=== PATIENT | female | born 1970 | race African-American/Black ===

== ENCOUNTER 2017-12-14 04:25 | Emergency (ER) | payer MEDICARE, MEDICAID ==
[~2017-12-14] VITALS: Ht 165.1 cm; Wt 81.6 kg
[2017-12-14 04:31] VITALS: BP 134/74
[2017-12-14] MEDS: HYDROmorphone 1mg/ml Carpuject IM ONE (04:38)
--- NOTE | 2017-12-14 04:38 | Emergency Room Report ---
History of Present Illness General Chief Complaint: Upper Extremity Injury Source: Patient, Medical Record Present Illness HPI Is a 47 show female with a history of epilepsy, chronic pain and is wheelchair- bound. She resides in a senior care. She presents with chief complaint of shoulder pain and left-sided pain. About 3 days ago she was in an activity at the senior care. They stood her up and she fell to the left side. She complaining of severe left shoulder pain. Also with rib pain and headache. No loss of consciousness. No nausea vomiting. No other symptoms. Pain is 10 out of 10. Allergies: Coded Allergies: CEPHALEXIN (Unverified Allergy, Unknown, 12/14/17) CRANBERRY (Unverified Allergy, Unknown, 12/14/17) PERMETHRIN (Unverified Allergy, Unknown, 12/14/17) TRAMADOL (Unverified Allergy, Unknown, 12/14/17) WARFARIN (Unverified Allergy, Unknown, 12/14/17) Uncoded Allergies: PLASTIC TAPE (Allergy, Unknown, 12/14/17) Patient History Past Medical History: see triage record, old chart reviewed Past Surgical History: other Pertinent Family History: none Social History: Denies: smoking Last Menstrual Period: UNK Now: No Immunizations: other Reviewed Nursing Documentation: PMH: Agreed, PSxH: Agreed Review of Systems Eye: Denies: eye pain, blurred vision ENT: Denies: ear pain, nose congestion, throat swelling Respiratory: Denies: cough, shortness of breath Cardiovascular: Denies: chest pain, palpitations Gastrointestinal: Denies: abdominal pain, diarrhea, nausea, vomiting Musculoskeletal: Reports: joint pain, Denies: back pain Skin: Denies: rash Neurological: Denies: headache, numbness Endocrine: Denies: increased thirst, increased urine Hematologic/Lymphatic: Denies: easy bruising All Other Systems: negative except mentioned in HPI Physical Exam Vital Signs Date Time Temp Pulse Resp B/P (MAP) Pulse Ox O2 Delivery O2 Flow Rate FiO2 12/14/17 04:21 97.2 66 20 134/74 100 Room Air vitals normal Sp02 EP Interpretation: reviewed, normal General Appearance: well appearing, no apparent distress, alert Head: normocephalic, atraumatic Eyes: bilateral eye PERRL, bilateral eye EOMI ENT: hearing grossly normal, normal pharynx Neck: full range of motion, supple, no meningismus Respiratory: lungs clear, normal breath sounds, other - Chest wall tendeness along the left lateral rib underneath her breast Cardiovascular #1: regular rate, rhythm, no murmur Gastrointestinal: normal bowel sounds, non tender, no mass, no organomegaly, no bruit, non-distended Musculoskeletal: back normal, normal range of motion, other - Left shoulder with mild edema and ecchymosis. Pain with movement. Psychiatric: mood/affect normal Skin: warm/dry Procedures Splinting Splinting : Consent: Verbal Location: left shoulder Pre-Made Type: sling Pre-Proc Neuro Vasc Exam: normal Post-Proc Neuro Vasc Exam: normal Patient Tolerated: Well Complications: None Medical Decision Making Diagnostic Impression: Primary Impression: Closed left clavicular fracture Qualified Codes: S42.035A - Nondisplaced fracture of lateral end of left clavicle, initial encounter for closed fracture Additional Impression: Contusion of rib on left side Qualified Codes: S20.212A - Contusion of left front wall of thorax, initial encounter ER Course She present with a fall and a nondisplaced distal left clavicle fracture. No surgery required. We'll discharge home. Chest X-Ray Diagnostic Results Chest X-Ray Diagnostic Results : Chest X-Ray Ordered: Yes # of Views/Limited/Complete: 1 View Indication: Chest Pain EP Interpretation: Yes Interpretation: no consolidation, no effusion, no pneumothorax, no acute cardiopulmonary disease Impression: No acute disease Electronically Signed by: Jean Pierre Travis MD Other X-Ray Diagnostic Results Other X-Ray Diagnostic Results : X-Ray ordered: left shoulder # of Views/Limited Vs Complete: 3 View Indication: Pain EP Interpretation: Yes Interpretation: no dislocation, no soft tissue swelling, other - nondisplaced left clavicle frx. Impression: Other - left clavicle frx. Electronically Signed by: Jean Pierre Travis MD Last Vital Signs Date Time Temp Pulse Resp B/P (MAP) Pulse Ox O2 Delivery O2 Flow Rate FiO2 12/14/17 04:31 97.2 20 134/74 100 Room Air 12/14/17 04:21 66 Status: improved Disposition: HOME, SELF-CARE Condition: Stable Additional Instructions: Continue with pain management. Followup with your in a Dr. 7 days. Wear sling as needed. Return if worse. JEAN PIERRE TRAVIS M.D. Dec 14, 2017 04:38
[2017-12-14 06:19] VITALS: BP 123/84
--- NOTE | 2017-12-14 09:36 | Diagnostic Imaging Report ---
Indication: Reason For Exam: TRAUMA Technique: 3 views of the left shoulder Comparison: none Findings: There is a minimally displaced fracture of the distal clavicle. No shoulder fracture demonstrated. Impression: Positive for distal clavicular fracture. This agrees with the preliminary interpretation provided by the emergency room physician
--- NOTE | 2017-12-14 09:51 | Diagnostic Imaging Report ---
Indication: Trauma, status post fall Technique: One view of the chest Comparison: none Findings: Lungs and pleural spaces are clear. Heart size is normal. Surgical clips are seen in the upper abdomen. Inspiration is suboptimal Impression: No acute process
== END 2017-12-14 06:44 | disposition home or self-care (01) ==
LOC: EDBD 04:25 → EMR 05:27
DX: S42.032A Displaced fracture of lateral end of left clavicle, initial encounter for closed fracture (principal); S20.212A Contusion of left front wall of thorax, initial encounter; W19.XXXA Unspecified fall, initial encounter; Y92.9 Unspecified place or not applicable; Z88.1 Allergy status to other antibiotic agents; Z88.5 Allergy status to narcotic agent; Z88.8 Allergy status to other drugs, medicaments and biological substances
CPT/HCPCS: 29240; 71045; 73030; 96372; 99284; J1170